=== PATIENT | female | born 1990 | race Hispanic/Latino ===

== ENCOUNTER 2023-12-22 00:08 | Emergency (ER) | payer OTHER, SELFPAY ==
[2023-12-22 00:24] VITALS: BP 103/63
--- NOTE | 2023-12-22 00:55 | ED.GENMED ---
History of Present Illness
General
Chief Complaint: Skin Problem
Source: patient
Exam Limitations: none
Time Seen by Provider: 12/22/23 00:43
Nursing documentation reviewed up to this point in time: agreed with
History of Present Illness
History of Present Illness:
33-year-old female itchy rash to her posterior knee left arm right arm for few [place], never had poison no fever no throat swelling
Past History
Past History
ED Past Medical History: None
ED Past Surgical History: None
Social History
Tobacco: Non-smoker
Alcohol: None
Drug: None
Personal:
Living: with family
Review of Systems
Review of Systems
All Other Systems: Not applicable
EENT: Reports no symptoms
Respiratory: Reports no symptoms
Skin: Reports itching and rash
Phy Exam
Physical Exam
Physical Exam:
Physical Exam
General: no apparent distress, not acutely ill
Neck: No throat
Heart: s1/s2 regular rate and rhythm, no murmur. equal radial pulses.
Lungs: no acute respiratory distress. No wheezing
Neuro: alert and oriented. no focal neurological deficits
Skin: Linear dermatitis or posterior in the left arm no cellulitic
Psychiatric: well kept. interactive and cooperative
Extremities: no edema.
Course
Orders/Labs/Results
Orders:
Orders
12/22/23 00:53
Diphenhydramine [Benadryl] 25 mg PO NOW STA
Hydrocortisone [Hydrocortisone 1% Cream] See Dose Instructions TOPICAL NOW STA
Prednisone [Deltasone] 50 mg PO NOW STA
Vital Signs
Initial and Last Documented VS:
Initial Vital Signs
Temp Pulse Resp BP Pulse Ox
98.4 F 65 18 103/63 99
12/22/23 00:24 12/22/23 00:24 12/22/23 00:24 12/22/23 00:24 12/22/23 00:24
Last Documented Vital Signs
Temp Pulse Resp BP Pulse Ox
98.4 F 65 18 103/63 99
12/22/23 00:24 12/22/23 00:24 12/22/23 00:24 12/22/23 00:24 12/22/23 00:24
MDM/Problems Addressed
Differential Diagnosis Includes:
Contact dermatitis poison liseth no signs of cellulitis
MDM/Problems Addressed:
Rash
*Critical Care Note
Total Time (30-74mins, 75-104mins- exclusive of procedures): Not Applicable
Update Note
Update Note:
Also to contact dermatitis from poison liseth will treat with antihistamines and steroids
ED Attending Note
-
Portions of this chart may have been created with voice recognition software.� Occasional wrong word or��sound alike� substitutions may have occurred due to the inherent limitations of voice recognition software.
Discharge Plan
Departure
Patient Disposition: Home (Routine Discharge)
Date of Disposition: 12/22/23
Time of Disposition: 00:57
Patient with high blood pressure during this ER visit?: No
Condition: Good
Covid-19: Not Applicable
Discharge Problem:
Allergic dermatitis due to poison liseth
Instructions: Poison [place], Poison [place], Poison [place] (DC)
Prescriptions:
New
diphenhydramine HCl [Benadryl] 25 mg capsule
25 mg PO TID PRN (Reason: itching) Qty: 20 0RF
prednisone 10 mg tablet
10 mg PO DIRECTED Qty: 30 0RF
Rx Instructions:
4 pills a day for 3 days, 3 pills a day for 3 days, 2 pills a day for 3 days, 1 pill a day for 3 days
Interventions
Interventions:
*General Assessment Last Done: 12/22/23 00:16
*Neglect/Abuse Screening Last Done: 12/22/23 00:19
ED- Fall Risk Assessment Last Done: 12/22/23 00:23
*ED COVID-19 Vaccine History Last Done: 12/22/23 00:23
Discharge Date and Time
Print Language: BHUTANESE
[2023-12-22] MEDS: DELTASONE 50 MG PO (01:04)
[2023-12-22] MEDS: BENADRYL 25 MG PO (01:04)
[2023-12-22] MEDS: HYDROCORTISONE 1% CREAM 1 APPLIC TOPICAL (01:08)
== END 2023-12-22 01:24 | disposition home or self-care (01) ==
LOC: EMR 00:08
PROVIDERS: EMERGENCY PHYSICIAN Emergency Medicine; FAMILY PHYSICIAN Family Medicine
DX: L23.7 Allergic contact dermatitis due to plants, except food (principal)
CPT/HCPCS: 99283

== ENCOUNTER 2024-03-05 23:08 | Emergency (ER) | payer OTHER, SELFPAY ==
[2024-03-05 23:10] VITALS: BP 101/61
--- NOTE | 2024-03-06 00:03 | ED.GENMED ---
History of Present Illness
General
Chief Complaint: Skin Problem
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
Exam Limitations: none
Time Seen by Provider: 03/05/24 23:48
Nursing documentation reviewed up to this point in time: agreed with
History of Present Illness
History of Present Illness:
33-year-old female presents emergency room complaining of a rash on her left leg and left arm and back that has been itching for over a month. She did have poison [place] several months ago. She states she was bit by mosquito.
Past History
Past History
ED Past Medical History: None
ED Past Surgical History: None
Social History
Tobacco: Non-smoker
Alcohol: None
Drug: None
Personal:
Living: with family
Review of Systems
Review of Systems
Allergies reviewed?: Yes
All Other Systems: Not applicable
Constitutional: Reports no symptoms
EENT: Reports no symptoms
Respiratory: Reports no symptoms
Cardiac: Reports no symptoms
ABD/GI: Reports no symptoms
: Reports no symptoms
Musculoskeletal: Reports no symptoms
Skin: Reports itching and rash
Neurological: Reports no symptoms
Endocrine: Reports no symptoms
Hematologic/Lymphatic: Reports no symptoms
Psychiatric: Reports no symptoms
Phy Exam
Physical Exam
Physical Exam:
Physical Exam
General: no apparent distress, not acutely ill
Neck: supple. no meningeal signs. normal posterior pharynx
Heart: s1/s2 regular rate and rhythm, no murmur. equal radial
pulses.
HEENT: Pupils equal round reactive to light, EOMI
Lungs: no acute respiratory distress. clear bilaterally
Abdomen: normal bowel sounds. not tender. no CVAT
Neuro: alert and oriented. no focal neurological deficits cranial nerves II through XII intact
Skin: Excoriation and papular rash left arm, left leg and low back
Psychiatric: well kept. interactive and cooperative
Extremities: no edema. no calf tenderness. negative homans. good distal pulses
Course
Orders/Labs/Results
Orders:
Orders
03/06/24 00:06
Prednisone [Deltasone] 50 mg PO NOW STA
Vital Signs
Initial and Last Documented VS:
Initial Vital Signs
Temp Pulse Resp BP Pulse Ox
98.4 F 56 16 101/61 99
03/05/24 23:10 03/05/24 23:10 03/05/24 23:10 03/05/24 23:10 03/05/24 23:10
Last Documented Vital Signs
Temp Pulse Resp BP Pulse Ox
98.4 F 63 18 115/77 100
03/05/24 23:10 03/06/24 00:21 03/06/24 00:21 03/06/24 00:21 03/06/24 00:21
MDM/Problems Addressed
Differential Diagnosis Includes:
Cellulitis, allergic reaction dermatitis
MDM/Problems Addressed:
41-year-old female with dermatitis, likely contact dermatitis. Treat with prednisone taper. Follow-up with and [facility].
*Pulse Oximetry
Patient hypoxic: no
*Critical Care Note
Total Time (30-74mins, 75-104mins- exclusive of procedures): Not Applicable
Patient Management
Social determinants of health affecting care: Living situation and Poor outpatient follow-up
Escalation/DeEscalation of care consider admission/obs:
Admit not indicated
ED Attending Note
-
Portions of this chart may have been created with voice recognition software.� Occasional wrong word or��sound alike� substitutions may have occurred due to the inherent limitations of voice recognition software.
Discharge Plan
Departure
Patient Disposition: Home (Routine Discharge)
Date of Disposition: 03/06/24
Time of Disposition: 00:06
Patient with high blood pressure during this ER visit?: No
Condition: Good
Discharge Problem:
Allergic dermatitis
Instructions: Dermatitis ( Contact )
Prescriptions:
New
prednisone 10 mg Tablet
See Rx Instructions .ROUTE .COMPLEX Qty: 30 0RF
Rx Instructions:
Take By Mouth:
40 mg daily x3 days, 30 mg daily x3 days,
20 mg daily x3 days, 10 mg daily x3 days.
No Action
diphenhydramine HCl [Benadryl] 25 mg capsule
25 mg PO TID PRN (Reason: itching) Qty: 20 0RF
prednisone 10 mg tablet
10 mg PO DIRECTED Qty: 30 0RF
Rx Instructions:
4 pills a day for 3 days, 3 pills a day for 3 days, 2 pills a day for 3 days, 1 pill a day for 3 days
Referrals:
[facility] [Outside] - Call in 1-3 days for appt
NONE,* [Family Provider] -
Interventions
Interventions:
*Risk Screen - Suicide Last Done: 03/06/24 00:22
*General Assessment Last Done: 03/05/24 23:10
*Neglect/Abuse Screening Last Done: 03/05/24 23:10
ED- Fall Risk Assessment Last Done: 03/06/24 00:22
*ED COVID-19 Vaccine History Last Done: 03/05/24 23:10
*Nursing Disposition Last Done: 03/06/24 00:22
ED-Skin Assessment Last Done: 03/06/24 00:22
Discharge Date and Time
Discharge Date/Time: 03/06/24 00:23
Print Language: [place]
[2024-03-06] MEDS: DELTASONE 50 MG PO (00:13)
[2024-03-06 00:21] VITALS: BP 115/77
== END 2024-03-06 00:23 | disposition home or self-care (01) ==
LOC: EMR 23:08
PROVIDERS: EMERGENCY PHYSICIAN Emergency Medicine
DX: L23.9 Allergic contact dermatitis, unspecified cause (principal); L29.9 Pruritus, unspecified; Z88.8 Allergy status to other drugs, medicaments and biological substances
CPT/HCPCS: 99283

== ENCOUNTER 2024-04-30 22:28 | Emergency (ER) | payer OTHER, SELFPAY ==
[2024-04-30 22:30] VITALS: BP 102/65
--- NOTE | 2024-04-30 23:23 | ED.SKININJ ---
HPI-Injury
General
Chief Complaint: Ear Problem
Source: patient
Exam Limitations: none
Time Seen by Provider: 04/30/24 23:03
Nursing documentation reviewed up to this point in time: agreed with
History of Present Illness-Injury
Is this injury a work related problem?: No
Is pt an associate of [facility]/[place]?: No
Initial Injury comments:
Patient to ED with compalint of pain and swelling to right side of face. Symptms started a few days ago and continue to worsen. Has had abscesses elsewhere on her body in the past. Denies fever/chills.
Past History
Past History
ED Past Medical History: None
ED Past Surgical History: None
Social History
Tobacco: Non-smoker
Alcohol: None
Drug: None
Personal:
Living: with family
Review of Systems
Review of Systems
Allergies reviewed?: Yes
All Other Systems: ROS reviewed and negative except as documented in HPI and ROS
Constitutional: Reports no symptoms
EENT: Reports no symptoms
Respiratory: Reports no symptoms
Cardiac: Reports no symptoms
ABD/GI: Reports no symptoms
Musculoskeletal: Reports no symptoms
Skin: Reports other (small abscess right side of face )
Neurological: Reports no symptoms
Psychiatric: Reports no symptoms
Skin Exam
Abscess
Right Face:
Description of abscess: firm
Surrounding skin:: reddened around abscess
Phy Exam
General Physical Exam
General Presentation: well appearing and no apparent distress
General age: appears stated age
General Skin: warm and dry
General Habitus: normal
Musculoskeletal Exam
Musculoskeletal Exam: full ROM and neuro vasc intact
Skin Exam
Skin Exam: normal color, warm/dry and no rash
Psychiatric Exam
Psychiatric Exam: normal mood/affect
Course
Orders/Labs/Results
Orders:
Orders
04/30/24 23:19
Wound Culture [Wound/Abscess/Other Culture] Urgent
GERALDINE Source: Face
Specimen Description: Right
Cephalexin Monohydrate [Keflex] 500 mg PO NOW STA
Vital Signs
Initial and Last Documented VS:
Initial Vital Signs
Temp Pulse Resp BP Pulse Ox
98.2 F 65 16 102/65 100
04/30/24 22:30 04/30/24 22:30 04/30/24 22:30 04/30/24 22:30 04/30/24 22:30
Last Documented Vital Signs
Temp Pulse Resp BP Pulse Ox
98.2 F 65 16 102/65 100
04/30/24 22:30 04/30/24 22:30 04/30/24 22:30 04/30/24 22:30 04/30/24 22:30
Procedures
Incision/Drainage/Joint Aspiration
Right Face:
Anethesia: 1% Lidocaine with Epi
Preparation: cleaned with Betadine
Type of procedure: incise
Nature of site: abscess
Description of abscess: less than 3cm
How much fluid was obtained?: scant amount
Fluid description: cloudy
Treatment: left open for drainage and antibiotics started
*Critical Care Note
Total Time (30-74mins, 75-104mins- exclusive of procedures): Not Applicable
ED Attending Note
-
Portions of this chart may have been created with voice recognition software.� Occasional wrong word or��sound alike� substitutions may have occurred due to the inherent limitations of voice recognition software.
Discharge Plan
Departure
Patient Disposition: Home (Routine Discharge)
Date of Disposition: 04/30/24
Time of Disposition: 23:20
Patient with high blood pressure during this ER visit?: No
Condition: Good
Covid-19: Not Applicable
Discharge Problem:
Cellulitis of face
Instructions: Cellulitis (Skin Infection), Adult ED
Prescriptions:
New
cephalexin 500 mg capsule
500 mg PO TID 10 Days Qty: 30 0RF
No Action
diphenhydramine HCl [Benadryl] 25 mg capsule
25 mg PO TID PRN (Reason: itching) Qty: 20 0RF
prednisone 10 mg tablet
10 mg PO DIRECTED Qty: 30 0RF
Rx Instructions:
4 pills a day for 3 days, 3 pills a day for 3 days, 2 pills a day for 3 days, 1 pill a day for 3 days
prednisone 10 mg Tablet
See Rx Instructions .ROUTE .COMPLEX Qty: 30 0RF
Rx Instructions:
Take By Mouth:
40 mg daily x3 days, 30 mg daily x3 days,
20 mg daily x3 days, 10 mg daily x3 days.
Referrals:
[facility] [Outside] - Call in 1-3 days for appt
Activity Restrictions/Additional Instructions:
Return to the emergency department immediately for fever/chills, worsening pain/redness/swelling or for any further concerns.
Interventions
Interventions:
*Risk Screen - Suicide Last Done: 04/30/24 22:30
*Neglect/Abuse Screening Last Done: 04/30/24 22:30
Discharge Date and Time
Print Language: WOLOF
[2024-04-30] MEDS: KEFLEX 500 MG PO (23:49)
== END 2024-05-01 01:59 | disposition home or self-care (01) ==
LOC: EMR 22:28
PROVIDERS: EMERGENCY PHYSICIAN Emergency Medicine
DX: L03.211 Cellulitis of face (principal); L02.01 Cutaneous abscess of face; Z88.8 Allergy status to other drugs, medicaments and biological substances
CPT/HCPCS: 99283; 10060; 87070; 87147; 87205